=== PATIENT | female | born 1945 | race Caucasian/White ===

== ENCOUNTER 2021-03-27 17:46 | Emergency (ER) | payer MEDICARE ==
[~2021-03-27 17:46] MED LIST: ZOFRAN ODT 4 MG4 MG SL
[2021-03-27 18:39] LABS: HEMOGLOBIN 13.6 gm/dl (12.3-15.3); RED BLOOD COUNT 4.39 M/UL (4.00-5.10); WHITE BLOOD COUNT 6.6 K/UL (4.5-11.0)
[2021-03-27 19:03] LABS: BUN/CREATININE RATIO 16 (0-10)
== END 2021-03-27 22:00 | disposition home or self-care (01) ==
LOC: ER1 17:46
PROVIDERS: Physician Assistant
DX: K44.9 Diaphragmatic hernia without obstruction or gangrene (principal); M25.512 Pain in left shoulder; I10 Essential (primary) hypertension; Z85.3 Personal history of malignant neoplasm of breast; Z90.89 Acquired absence of other organs
CPT/HCPCS: 71045; 80053; 82550; 82553; 83874; 83880; 84484; 85025; 85379; 85610; 85730; 93005; 99284; Q9967